=== PATIENT | female | born 1965 | race Two or more races ===

== ENCOUNTER 2021-05-08 16:20 | Inpatient (IN) | payer OTHER ==
[~2021-05-08] VITALS: Ht 157.5 cm; Wt 71.0 kg
[2021-05-08 17:02] LABS: Basophils # (auto) 0 10 ^3/uL (0-0.2); Basophils % (auto) 0.6 % (0.0-2.0); Eosinophils # (auto) 0.1 10 ^3/uL (0-0.8); Eosinophils % (auto) 1.1 % (0.0-7.0); Hematocrit 38.7 % (36.0-46.0); Lymphocytes # (auto) 2.2 10 ^3/uL (0.4-5.4); Lymphocytes % (auto) 34.8 % (10.0-50.0); Mean Corpuscular Hemoglobin 30.6 pg (28.0-32.0); Mean Corpuscular Hgb Conc. 33.5 g/dL (32.0-36.0); Mean Corpuscular Volume 91.2 fL (80.0-100.0); Monocytes # (auto) 0.4 10 ^3/uL (0-1.3); Monocytes % (auto) 6.9 % (0.0-12.0); Neutrophils # (auto) 3.5 10 ^3/uL (1.6-8.6); Neutrophils % (auto) 56.6 % (37.0-80.0); Red Blood Cells 4.25 10^6/uL (4.0-5.20); Red Cell Distribution Width 13.6 % (11.8-14.3); White Blood Cell 6.2 10^3/uL (4.4-10.8)
[2021-05-08 17:18] LABS: Albumin 3.7 g/dL (3.4-5.0); Calcium 8.9 mg/dL (8.5-10.1); Potassium 3.8 mmol/L (3.5-5.1)
[2021-05-08 17:23] LABS: Bilirubin, Total 0.3 mg/dL (0.2-1.0); Total Protein 7.6 g/dL (6.4-8.2)
[2021-05-08] MEDS ORDERED: SODIUM CHLORIDE 0.9% 1,000 ML IV ONE (17:30)
[2021-05-08 17:31] LABS: BUN/Creatinine Ratio 31.9
[2021-05-08] MEDS ORDERED: ACETAMINOPHEN 325 MG TAB PO PRN (19:45)
[2021-05-08] MEDS: SODIUM CHLORIDE 0.9% 1,000 ML IV SCH (19:45)
[2021-05-08] MEDS ORDERED: DOCUSATE CALCIUM 240 MG CAP PO PRN (19:45)
[2021-05-08] MEDS ORDERED: NITROGLYCERIN 0.4 MG SL TAB SL PRN (19:45)
[2021-05-08] MEDS ORDERED: ONDANSETRON HCL 4 MG/2 ML VIAL IV PRN (19:45)
[2021-05-08] MEDS ORDERED: hydrALAZINE HCL 20 MG/ML VL IV PRN (19:45)
[2021-05-08] MEDS ORDERED: LORazepam 0.5 MG TAB PO PRN (19:45)
[2021-05-08 21:27] VITALS: BP 119/66
[2021-05-08 22:00] VITALS: BP 119/66
[2021-05-08 22:54] VITALS: BP 119/66
[2021-05-09] MEDS: SODIUM CHLORIDE 0.9% 1,000 ML IV SCH ×2 (04:04→16:00)
[2021-05-09 05:00] VITALS: BP 96/63
[2021-05-09 05:41] LABS: Basophils # (auto) 0 10 ^3/uL (0-0.2); Basophils % (auto) 0.9 % (0.0-2.0); Eosinophils # (auto) 0.1 10 ^3/uL (0-0.8); Eosinophils % (auto) 2.3 % (0.0-7.0); Hematocrit 37.8 % (36.0-46.0); Hemoglobin 12.7 g/dL (12.2-16.2); Lymphocytes # (auto) 2.2 10 ^3/uL (0.4-5.4); Lymphocytes % (auto) 50.3 % (10.0-50.0); Mean Corpuscular Hemoglobin 31.1 pg (28.0-32.0); Mean Corpuscular Hgb Conc. 33.5 g/dL (32.0-36.0); Mean Corpuscular Volume 92.8 fL (80.0-100.0); Monocytes # (auto) 0.4 10 ^3/uL (0-1.3); Monocytes % (auto) 9.9 % (0.0-12.0); Neutrophils # (auto) 1.6 10 ^3/uL (1.6-8.6); Neutrophils % (auto) 36.6 % (37.0-80.0); Nucleated Red Blood Cells % 0.1 %; Red Blood Cells 4.08 10^6/uL (4.0-5.20); Red Cell Distribution Width 13.8 % (11.8-14.3); White Blood Cell 4.4 10^3/uL (4.4-10.8)
[2021-05-09 05:44] LABS: INR 1.02 (0.9-1.15); Potassium 3.5 mmol/L (3.5-5.1)
[2021-05-09 05:48] LABS: Free T3 3.06 pg/mL (2.3-4.2); Free T4 (Free Thyroxine) 1.22 ng/dL (0.89-1.76)
[2021-05-09 05:51] LABS: Albumin 3.1 g/dL (3.4-5.0); BUN/Creatinine Ratio 24.3; Bilirubin, Total 0.3 mg/dL (0.2-1.0); Calcium 8.3 mg/dL (8.5-10.1); Total Protein 6.6 g/dL (6.4-8.2)
[2021-05-09 08:40] VITALS: BP 103/63
[2021-05-09] MEDS ORDERED: PANTOPRAZOLE 40 MG TAB PO SCH (10:00)
[2021-05-09] MEDS: ENOXAPARIN SOD 40 MG/0.4 ML SYRINGE SC SCH (10:55)
[2021-05-09 13:23] VITALS: BP 101/68
[2021-05-09] MEDS ORDERED: LORazepam 0.5 MG TAB PO PRN (13:45)
[2021-05-09] MEDS: SUCRALFATE 1 GM/10 ML ORAL SUSP PO SCH ×2 (16:33→21:33)
[2021-05-09 16:43] VITALS: BP 103/65
[2021-05-09] MEDS: PANTOPRAZOLE 40 MG TAB PO SCH (21:33)
[2021-05-09 22:00] VITALS: BP 90/55
[2021-05-10] MEDS: SODIUM CHLORIDE 0.9% 1,000 ML IV SCH ×4 (02:07→21:25)
[2021-05-10 05:50] VITALS: BP 109/58
[2021-05-10 06:12] LABS: Basophils # (auto) 0 10 ^3/uL (0-0.2); Basophils % (auto) 0.7 % (0.0-2.0); Eosinophils # (auto) 0.2 10 ^3/uL (0-0.8); Eosinophils % (auto) 3.8 % (0.0-7.0); Hematocrit 37.2 % (36.0-46.0); Hemoglobin 12.8 g/dL (12.2-16.2); Lymphocytes # (auto) 2.3 10 ^3/uL (0.4-5.4); Lymphocytes % (auto) 50.4 % (10.0-50.0); Mean Corpuscular Hemoglobin 31.8 pg (28.0-32.0); Mean Corpuscular Hgb Conc. 34.3 g/dL (32.0-36.0); Mean Corpuscular Volume 92.6 fL (80.0-100.0); Monocytes # (auto) 0.4 10 ^3/uL (0-1.3); Monocytes % (auto) 9.1 % (0.0-12.0); Neutrophils # (auto) 1.6 10 ^3/uL (1.6-8.6); Nucleated Red Blood Cells % 0.2 %; Red Blood Cells 4.01 10^6/uL (4.0-5.20); Red Cell Distribution Width 13.5 % (11.8-14.3); White Blood Cell 4.6 10^3/uL (4.4-10.8)
[2021-05-10 06:13] LABS: Potassium 4.2 mmol/L (3.5-5.1)
[2021-05-10 06:21] LABS: Albumin 2.8 g/dL (3.4-5.0); BUN/Creatinine Ratio 28.4; Bilirubin, Total 0.2 mg/dL (0.2-1.0); Calcium 8.4 mg/dL (8.5-10.1); Total Protein 6.2 g/dL (6.4-8.2)
[2021-05-10] MEDS: SUCRALFATE 1 GM/10 ML ORAL SUSP PO SCH ×4 (06:21→21:11)
[2021-05-10 08:34] VITALS: BP 100/59
[2021-05-10] MEDS ORDERED: GOLYTELY 4L KIT PO ONE (09:00)
[2021-05-10] MEDS: PANTOPRAZOLE 40 MG TAB PO SCH ×2 (09:53→21:11)
[2021-05-10] MEDS: ENOXAPARIN SOD 40 MG/0.4 ML SYRINGE SC SCH (09:53)
[2021-05-10] MEDS: LIDOCAINE 5% TOPICAL PATCH TOP SCH (09:53)
[2021-05-10] MEDS: Ensure HIGH Protein Chocolate 8oz Bottle PO SCH ×2 (12:02→18:34)
[2021-05-10 12:45] VITALS: BP 109/62
[2021-05-10 17:28] VITALS: BP 103/65
[2021-05-10 22:00] VITALS: BP 89/58
[2021-05-11] MEDS: SUCRALFATE 1 GM/10 ML ORAL SUSP PO SCH ×4 (04:58→21:45)
[2021-05-11 05:00] VITALS: BP 107/51
[2021-05-11] MEDS ORDERED: GOLYTELY 4L KIT PO ONE (05:00)
[2021-05-11 06:10] LABS: Basophils # (auto) 0 10 ^3/uL (0-0.2); Basophils % (auto) 0.5 % (0.0-2.0); Eosinophils # (auto) 0.2 10 ^3/uL (0-0.8); Eosinophils % (auto) 3.9 % (0.0-7.0); Hematocrit 38.8 % (36.0-46.0); Hemoglobin 13.2 g/dL (12.2-16.2); Lymphocytes % (auto) 43.9 % (10.0-50.0); Mean Corpuscular Hemoglobin 31.4 pg (28.0-32.0); Mean Corpuscular Volume 92.3 fL (80.0-100.0); Monocytes # (auto) 0.4 10 ^3/uL (0-1.3); Neutrophils % (auto) 43.7 % (37.0-80.0); Nucleated Red Blood Cells % 0.1 %; Red Cell Distribution Width 14.3 % (11.8-14.3); White Blood Cell 4.6 10^3/uL (4.4-10.8)
[2021-05-11 06:43] LABS: Albumin 2.9 g/dL (3.4-5.0); Calcium 8.5 mg/dL (8.5-10.1); Potassium 3.5 mmol/L (3.5-5.1)
[2021-05-11 06:47] LABS: BUN/Creatinine Ratio 12.7; Bilirubin, Total 0.3 mg/dL (0.2-1.0); Total Protein 6.3 g/dL (6.4-8.2)
[2021-05-11] MEDS: Ensure HIGH Protein Chocolate 8oz Bottle PO SCH ×3 (08:00→18:02)
[2021-05-11 08:48] VITALS: BP 97/62
[2021-05-11] MEDS ORDERED: diphenhdrAMINE HCL 50 MG/1 ML VL ONE (09:08)
[2021-05-11] MEDS ORDERED: SODIUM CHLORIDE LOCK 10 ML ONE (09:08)
[2021-05-11] MEDS: LIDOCAINE 5% TOPICAL PATCH TOP SCH (10:00)
[2021-05-11] MEDS: ENOXAPARIN SOD 40 MG/0.4 ML SYRINGE SC SCH (10:00)
[2021-05-11] MEDS: PANTOPRAZOLE 40 MG TAB PO SCH ×2 (10:00→21:45)
[2021-05-11] MEDS: SODIUM CHLORIDE 0.9% 1,000 ML IV SCH ×4 (10:28→22:56)
[2021-05-11 12:48] VITALS: BP 104/56
[2021-05-11] MEDS ORDERED: HYDROCORTISONE SOD SUCC 100 MG/2ML INJ VIAL IV ONE (13:00)
[2021-05-11] MEDS ORDERED: LIDOCAINE VISCOUS 2% 15ML UD ONE (13:26)
[2021-05-11] MEDS: fentaNYL CITRATE 100 MCG/2 ML VL ONE ×3 (13:27→13:40)
[2021-05-11] MEDS: MIDAZOLAM HCL 5 MG/ML-1ML VIAL ONE ×3 (13:27→13:40)
[2021-05-11 16:53] VITALS: BP 109/66
[2021-05-11 17:08] VITALS: BP 109/66
[2021-05-11] MEDS: HYDROCORTISONE SOD SUCC 100 MG/2ML INJ VIAL IV SCH (21:45)
[2021-05-11 22:00] VITALS: BP 137/72
[2021-05-12 05:00] VITALS: BP 104/54
[2021-05-12] MEDS: SUCRALFATE 1 GM/10 ML ORAL SUSP PO SCH ×4 (06:10→21:10)
[2021-05-12] MEDS: SODIUM CHLORIDE 0.9% 1,000 ML IV SCH ×4 (06:11→16:33)
[2021-05-12] MEDS: Ensure HIGH Protein Chocolate 8oz Bottle PO SCH ×3 (08:20→18:47)
[2021-05-12 09:00] VITALS: BP 99/51
[2021-05-12] MEDS: LIDOCAINE 5% TOPICAL PATCH TOP SCH (10:00)
[2021-05-12] MEDS: PANTOPRAZOLE 40 MG TAB PO SCH ×2 (10:11→21:11)
[2021-05-12] MEDS: HYDROCORTISONE SOD SUCC 100 MG/2ML INJ VIAL IV SCH ×2 (10:12→21:10)
[2021-05-12] MEDS: ENOXAPARIN SOD 40 MG/0.4 ML SYRINGE SC SCH (10:12)
[2021-05-12 13:00] VITALS: BP 126/69
[2021-05-12 16:44] VITALS: BP 93/50
[2021-05-12 22:00] VITALS: BP 84/48
[2021-05-13] MEDS: SODIUM CHLORIDE 0.9% 1,000 ML IV SCH (00:24)
[2021-05-13 05:00] VITALS: BP_SYST 112; BP_SYST 152; BP_DIAS 59; BP_DIAS 92
[2021-05-13] MEDS: Ensure HIGH Protein Chocolate 8oz Bottle PO SCH (08:00)
[2021-05-13] MEDS: SUCRALFATE 1 GM/10 ML ORAL SUSP PO SCH (08:13)
[2021-05-13 09:00] VITALS: BP 105/71
[2021-05-13] MEDS: PANTOPRAZOLE 40 MG TAB PO SCH (09:30)
[2021-05-13] MEDS: HYDROCORTISONE SOD SUCC 100 MG/2ML INJ VIAL IV SCH (09:30)
[2021-05-13] MEDS: ENOXAPARIN SOD 40 MG/0.4 ML SYRINGE SC SCH (09:30)
[2021-05-13] MEDS: LIDOCAINE 5% TOPICAL PATCH TOP SCH (09:32)
[2021-05-13] MEDS ORDERED: HYDROCORTISONE 10 MG TAB PO SCH (12:00)
[2021-05-13 13:10] VITALS: BP 109/59
== END 2021-05-13 12:30 | disposition home or self-care (01) | DRG 643 ==
LOC: ER 16:20 → OVERFLOW 19:41 → WEST WING 21:29
PROVIDERS: ADMIT Family Medicine; ATTEND Family Medicine
PROC: 0DJD8ZZ Inspection of Lower Intestinal Tract, Via Natural or Artificial Opening Endoscopic (ICD-10-PCS; 2021-05-11)
PROC: 0DB68ZX Excision of Stomach, Via Natural or Artificial Opening Endoscopic, Diagnostic (ICD-10-PCS; principal; 2021-05-11 13:31)
DX: E27.40 Unspecified adrenocortical insufficiency (principal); N17.0 Acute kidney failure with tubular necrosis; E44.0 Moderate protein-calorie malnutrition; E86.0 Dehydration; R73.03 Prediabetes; N18.9 Chronic kidney disease, unspecified; K29.70 Gastritis, unspecified, without bleeding; K29.80 Duodenitis without bleeding; Z20.822 Contact with and (suspected) exposure to COVID-19; K64.8 Other hemorrhoids; Z88.5 Allergy status to narcotic agent; Z88.2 Allergy status to sulfonamides; Z68.28 Body mass index [BMI] 28.0-28.9, adult
CPT/HCPCS: 36415; 43239; 43247; 70450; 71045; 74176; 80053; 82533; 82607; 83036; 83880; 84439; 84443; 84481; 84484; 85025; 85610; 86225; 86235; 86850; 86900; 86901; 87086; 87177; 87426; 96360; 96372; G0378; J2250

== ENCOUNTER 2022-02-02 18:52 | Emergency (ER) | payer OTHER ==
[~2022-02-02] VITALS: Ht 157.5 cm; Wt 63.5 kg
[2022-02-02 18:53] VITALS: BP 118/72
[2022-02-02] MEDS ORDERED: PROM1SOL4 PO (21:12)
== END 2022-02-02 18:53 | disposition home or self-care (01) ==
LOC: ER 18:53
DX: J06.9 Acute upper respiratory infection, unspecified (principal); J45.909 Unspecified asthma, uncomplicated
CPT/HCPCS: 71046

== ENCOUNTER 2022-04-01 11:34 | Emergency (ER) | payer OTHER ==
[~2022-04-01] VITALS: Ht 160 cm; Wt 63.0 kg
[~2022-04-01 11:34] MED LIST: PROM1SOL4 PO
[2022-04-01 12:36] VITALS: BP 111/66
[2022-04-01] MEDS ORDERED: AZIT500T PO (12:55)
[2022-04-01] MEDS ORDERED: METH4PAK PO (12:55)
== END 2022-04-01 13:04 | disposition home or self-care (01) ==
LOC: ER 11:34
DX: U07.1 COVID-19 (principal); J20.9 Acute bronchitis, unspecified
CPT/HCPCS: 71045

== ENCOUNTER 2023-10-12 19:04 | Emergency (ER) | payer MEDICAID, OTHER ==
[~2023-10-12] VITALS: Ht 157.5 cm; Wt 62.4 kg
[~2023-10-12 19:04] MED LIST changes: +AZIT500T PO; +METH4PAK PO
[2023-10-12 20:36] LABS: Basophils # (auto) 0 10 ^3/uL (0-0.2); Basophils % (auto) 0.6 % (0.0-2.0); Eosinophils # (auto) 0.2 10 ^3/uL (0-0.8); Eosinophils % (auto) 3.4 % (0.0-7.0); Hematocrit 41.2 % (36.0-46.0); Hemoglobin 13.6 g/dL (12.2-16.2); Lymphocytes # (auto) 2.2 10 ^3/uL (0.4-5.4); Lymphocytes % (auto) 44.3 % (10.0-50.0); Mean Corpuscular Hemoglobin 30.2 pg (28.0-32.0); Mean Corpuscular Volume 91.4 fL (80.0-100.0); Monocytes # (auto) 0.5 10 ^3/uL (0-1.3); Monocytes % (auto) 9.6 % (0.0-12.0); Neutrophils # (auto) 2.1 10 ^3/uL (1.6-8.6); Neutrophils % (auto) 42.1 % (37.0-80.0); Red Blood Cells 4.51 10^6/uL (4.0-5.20); Red Cell Distribution Width 12.8 % (11.8-14.3)
[2023-10-12 20:53] LABS: Alanine Aminotransferase 18 U/L (7-40); Albumin 4.6 g/dL (3.2-4.8); Alkaline Phosphatase 102 U/L (46-116); Anion Gap 6 (5-15); Aspartate Aminotransferase 20 U/L (13-40); BUN/Creatinine Ratio 18.9 (10.0-20.0); Bilirubin, Total 0.4 mg/dL (0.2-1.0); Blood Urea Nitrogen 14 mg/dL (9-23); Calcium 9.7 mg/dL (8.5-10.1); Carbon Dioxide 30 mmol/L (20-30); Chloride 104 mmol/L (98-107); Glucose 95 mg/dL (74-106); Sodium 140 mmol/L (136-145); Total Protein 7.3 g/dL (5.7-8.2)
[2023-10-12] MEDS ORDERED: IBUP-1454 PO (22:23)
[2023-10-12] MEDS ORDERED: ACE3T PO (22:23)
[2023-10-12 23:51] VITALS: BP 125/60; PULSE 70; RESP 18; O2SAT 98
== END 2023-10-12 23:52 | disposition home or self-care (01) ==
LOC: ER 19:04
DX: I83.812 Varicose veins of left lower extremity with pain (principal); J45.909 Unspecified asthma, uncomplicated; Z88.8 Allergy status to other drugs, medicaments and biological substances; Z79.899 Other long term (current) drug therapy
CPT/HCPCS: 36415; 80053; 85025; 93971